=== PATIENT | male | born 1950 | race Caucasian/White ===

== ENCOUNTER 2021-03-12 01:06 | Inpatient (IN) ==
[2021-03-12] MEDS ORDERED: Naloxone 0.4 MG/ML INJ IVP PRN (05:19)
[2021-03-12] MEDS ORDERED: *HR* Heparin 5,000 UNIT/ML VIAL IVP PRN ×2 (06:02)
[2021-03-12] MEDS ORDERED: Heparin 25,000UNIT/250ML 1/2NS 25,000 UNIT/250 ML IV.SOLN IVC SCH ×2 (06:15→07:45)
[2021-03-12 06:44] LABS: Basophils # 0.1 K/mcL (0.0-0.2); Basophils % 0.6 %; Eosinophils # 0.2 K/mcL (0.0-0.6); Eosinophils % 2.7 %; Hematocrit 42.4 % (37.5-50.1); Hemoglobin 13.9 g/dL (12.9-16.9); Immature Granulocytes % 0.1 % (0-4); Lymphocytes # 1.6 K/mcL (0.6-4.6); Lymphocytes % 20.9 %; Mean Corpuscular HGB Conc 32.8 g/dL (31.6-35.5); Mean Corpuscular Hemoglobin 33.4 pg (28.0-33.3); Mean Corpuscular Volume 101.9 fL (83.0-100.0); Mean Platelet Volume 10.4 fL (9.4-12.4); Monocytes # 0.6 K/mcL (0.0-1.3); Monocytes % 7.7 %; Neutrophils # 5.3 K/mcL (1.6-8.9); Platelet Count 139 K/mcL (140-400); Red Blood Count 4.16 M/mcL (4.19-5.50); Red Cell Distribution Width 14.7 % (11.5-14.5); White Blood Count 7.8 K/mcL (4.3-11.1)
[2021-03-12 06:53] LABS: INR 1.6; Prothrombin Time 18.5 Seconds (9.4-12.1)
[2021-03-12] MEDS ORDERED: Azithromycin 500 MG in 0.9 % Sodium Chloride 250 ML IVPB SCH (07:00)
[2021-03-12 07:02] LABS: Calcium 8.6 mg/dL (8.6-10.3); Potassium 4.6 mEq/L (3.5-5.1)
[2021-03-12 07:08] LABS: Chol/HDL Ratio 4.1 (0-4.9); Magnesium 1.5 mg/dL (1.6-2.6)
[2021-03-12 07:44] LABS: Troponin I 0.19 ng/mL (< 0.04)
[2021-03-12] MEDS ORDERED: Azithromycin 500 MG VIAL ONE (07:45)
[2021-03-12] MEDS: cefTRIAXone 1,000 MG in Water for inj. (sterile) 10 ML IVP SCH (07:55)
[2021-03-12] MEDS ORDERED: Ipratropium/Albuterol Neb 3 ML IH PRN (12:01)
[2021-03-12] MEDS: Ipratropium/Albuterol Neb 3 ML IH SCH ×3 (13:21→21:34)
[2021-03-12] MEDS: predniSONE 20 MG TABLET PO SCH (14:05)
[2021-03-12] MEDS ORDERED: Acetaminophen 325 MG TABLET PO PRN (16:36)
[2021-03-13] MEDS ORDERED: traZODone 50 MG TABLET PO SCH ×2 (00:03→21:00)
[2021-03-13] MEDS: *HR* OxyCODONE/APAP 10/325 TABLET PO PRN ×3 (00:07→11:10)
[2021-03-13 02:36] LABS: Hematocrit 38.5 % (37.5-50.1); Hemoglobin 12.4 g/dL (12.9-16.9); Mean Corpuscular HGB Conc 32.2 g/dL (31.6-35.5); Mean Corpuscular Volume 99.2 fL (83.0-100.0); Mean Platelet Volume 10.7 fL (9.4-12.4); Platelet Count 136 K/mcL (140-400); Red Blood Count 3.88 M/mcL (4.19-5.50); Red Cell Distribution Width 14.2 % (11.5-14.5); White Blood Count 7.2 K/mcL (4.3-11.1)
[2021-03-13 02:55] LABS: BUN/Creatinine Ratio 23 (6-26); Blood Urea Nitrogen 25 mg/dL (8-23); Calcium 8.6 mg/dL (8.6-10.3); Carbon Dioxide 21 mEq/L (23-29); Chloride 108 mEq/L (98-107); Glucose 159 mg/dL (70-105); Magnesium 1.5 mg/dL (1.6-2.6); Osmolality,Calculated 290 (280-300); Potassium 4.8 mEq/L (3.5-5.1); Sodium 136 mEq/L (136-145); eGFR For African Americans > 60 (> 60); eGFR For Non-African Americans > 60 (> 60)
[2021-03-13] MEDS: Ipratropium/Albuterol Neb 3 ML IH SCH ×3 (03:37→15:55)
[2021-03-13] MEDS ORDERED: Simethicone 80 MG TAB.CHEW PO PRN (07:14)
[2021-03-13] MEDS ORDERED: Latanoprost 2.5 ML BOTTLE BOTH EYES SCH (07:15)
[2021-03-13] MEDS: predniSONE 20 MG TABLET PO SCH (07:45)
[2021-03-13] MEDS: cefTRIAXone 1,000 MG in Water for inj. (sterile) 10 ML IVP SCH (07:46)
[2021-03-13] MEDS ORDERED: Metoprolol XL (24 HR) Succ 50 MG TAB.ER.24H PO SCH (09:00)
[2021-03-13] MEDS ORDERED: Pregabalin 75 MG CAPSULE PO SCH (09:00)
[2021-03-13] MEDS ORDERED: Azithromycin 250 MG TABLET PO SCH (09:00)
[2021-03-13] MEDS ORDERED: *HR* Rivaroxaban 10 MG TABLET PO SCH (09:00)
[2021-03-13] MEDS ORDERED: Budesonide/Formoterol 160/4.5 1 PUFF INH IH SCH (10:00)
[2021-03-13 11:47] VITALS: BP 130/56
== END 2021-03-13 16:02 | disposition home or self-care (01) | DRG 871 ==
LOC: 2NNU → SUATTDRO 04:58 → 2ANU 15:53
PROVIDERS: ADMIT Internal Medicine; ATTEND Internal Medicine